=== PATIENT | male | born 1950 | race African-American/Black ===

== ENCOUNTER 2017-05-25 17:48 | Inpatient (IN) | payer MEDICARE, MEDICAID ==
[2017-05-25 18:56] LABS: Hematocrit 20.6 % (42.0-52.0); Mean Platelet Volume 17.5 fL (7.4-10.4); Red Blood Cell (RBC) Count 2.23 mill/uL (4.70-6.10)
[2017-05-25 19:15] LABS: Anisocytosis SLIGHT = 6-15 cells (100X) (0-5/hpf); Band 8 % (5-11); Neutrophil 20 % (42-75); Nucleated RBC 42 % (0); Ovalocytes SLIGHT = 2-5 cells (100X) (0-1/hpf); Polychromasia MODERATE = 3-4 cells (100X) (0-2/hpf); Reactive Lymphocytes 3 % (0-10); Schistocytes SLIGHT = 2-5 cells (100X) (0-1/hpf); Tear Drops SLIGHT = 2-5 cells (100X) (0-1/hpf)
[2017-05-25 19:16] LABS: ALT (SGPT) 29 U/L (8-55); AST (SGOT) 171 U/L (5-34); Alkaline Phosphatase 995 U/L (40-150); Anion Gap 26 mmol/L (10-20); BUN (Urea Nitrogen) 38 mg/dL (8.4-25.7); Bilirubin, Total 0.8 mg/dL (0.2-1.2); Calc. Creatinine Clearance 0 mL/min (70-130); Calcium 8.7 mg/dL (7.8-10.44); Chloride 107 mmol/L (98-107); Estimated GFR-MDRD 62; Globulin 3.3 g/dL (2.4-3.5); Protein, Total 6.7 g/dL (5.8-8.1)
[2017-05-25 19:18] LABS: Carbon Dioxide 9 mmol/L (23-31)
--- NOTE | 2017-05-25 20:22 | RAD ---
AP CHEST: Indication: Nausea, vomiting. Comparison: 05-09-17 FINDINGS: Heart size and pulmonary vascular are within normal limits. The left costophrenic angle is excluded. There is diffuse scoliosis of the visualized osseous structures, suspicious for changes of diffuse osseous metastatic disease. No calcified lymph nodes within the right infrahilar region. IMPRESSION: No acute cardiopulmonary abnormality. POS: [facility]
[2017-05-25] MEDS ORDERED: Dextrose 50% Abboject 50 ML SYRINGE ONE (20:24)
[2017-05-25] MEDS ORDERED: Sodium Bicarb 50 MEQ/50 ML Abboject 8.4% SYRINGE ONE (20:24)
[2017-05-25] MEDS ORDERED: Insulin Regular 300 UNITS/3 ML VIAL ONE (20:24)
--- NOTE | 2017-05-25 20:25 | CT ---
NONCONTRAST CT OF THE BRAIN: Indication: Weakness, confusion, abdominal pain with a history of metastatic disease. FINDINGS: The extent of the subdural hematoma overlying the left cerebral convexity is similar appearing. Ther e is worsening vasogenic edema involving the inferior aspect of the left frontal lobe and lateral as pect of the left temporal lobe. There is stable left to right midline shift of 2 mm. No acute infarc t or hydrocephalus is present. Mastoid effusions are seen again bilaterally. IMPRESSION: 1. Worsening vasogenic edema seen within the left frontal lobe. The vasogenic edema within the right frontal lobe is stable. There is worsening vasogenic edema of the left temporal lobe. 2. Stable appearance of the left subdural hemorrhage. 3. Stable left to right midline shift of 2 mm. 4. No acute infarct of hydrocephalus is present. 5. Stable bilateral mastoid effusion. POS: [facility]
[2017-05-25] MEDS ORDERED: Calcium Chloride 1 GM/10 ML Abboject SYRINGE ONE (20:32)
[2017-05-25] MEDS ORDERED: Dexamethasone 4 mg/ml Vial ONE (20:51)
[2017-05-25] MEDS ORDERED: Ondansetron HCl/PF 4 MG/2 ML Vial IVP PRN (22:09)
[2017-05-25] MEDS ORDERED: Ondansetron ODT 4 MG TAB SL PRN (22:09)
[2017-05-25] MEDS ORDERED: Acetaminophen 325 MG TAB PO PRN (22:09)
--- NOTE | 2017-05-26 00:47 | CON ---
DATE OF CONSULTATION: 05/25/2017 HISTORY OF PRESENT ILLNESS: Mr. Merino is a 66-year-old male who presents to [facility] Emergency Department with nausea and vomiting. He has a history of stage IV prostate cancer with several meta static lesions to the brain. Today, he has been having changes in mental status and has pancytopeni a. He has also been vomiting several times today. His platelet count on admission was 6, hemoglobi n was 6.8. White blood cell count was 3. A CT of the brain was completed today that showed a stabl e right frontal hemorrhagic lesion as well as a left temporoparietal subdural hematoma. There is in creased swelling around the right frontal lesion on today's CT scan compared to the CT scan on 05/10. The patient was discharged on his last admission with home medications including Zofran, lev etiracetam, and dexamethasone. Neurosurgery was consulted for the findings on CT scan. ALLERGIES: No known drug allergies. PAST MEDICAL HISTORY: Includes diabetes mellitus, prostate cancer, hypertension. PAST SURGICAL HISTORY: Not available at this time. PSYCHIATRIC HISTORY: No previous psychiatric history. SOCIAL HISTORY: The patient denies any alcohol, denies drug use. Has no smoking history. Lives at home with his spouse. REVIEW OF SYSTEMS: Patient has headache. Patient also admits to prostatic metastasis to the brain. Ten-point review of systems was completed and is otherwise negative unless stated in the above HPI . PHYSICAL EXAMINATION: HEENT: Normocephalic, atraumatic. Hearing intact. Moist mucous membranes. EYES: Pupils are equal and reactive to light. Extraocular muscles are intact. Sclerae is white, n onicteric. CARDIOVASCULAR: The patient has regular rate and rhythm, normal S1, S2 heart sounds. The patient h as no distal cyanosis or clubbing. RESPIRATORY: The patient has bilateral symmetric chest rise. Appears to be in no shortness of su th. NEUROLOGIC STATUS: The patient is alert and oriented x2. His cranial nerves II-XII are grossly int act. His speech is fluent. He answers my questions appropriately. Upper and lower extremities hav e 5/5 strength bilaterally. SKIN: There is no dermatomal sensory loss. ASSESSMENT: Mr. Merino is a 66-year-old male with metastatic prostate cancer with several metastases to the brain. He has got increased swelling around the right frontal lesion in the brain compared to his last CT scan. Mr. Merino has severe pancytopenia with a platelet count of 6 and white blood c ell count of 3. Until his platelets are greater than 125,000 and his white blood cell count is grea ter than 6, neurosurgical intervention will not be an option at this time. He has been given a bolu s of Decadron for the swelling in the right frontal region. Patient has confirmed DNR status with t he daughter in the room. Medicine Team will admit and will help correct the pancytopenia and the hy perkalemia. Neurosurgery has signed off at this time. If there are any further questions or if his platelets increase greater than 125,000 and white blood cell count greater than 6, please call Neur osurgery and we will review the possibility of a neurosurgical intervention. Thank you for this consultation and the ability to care for this patient.
[2017-05-26] MEDS ORDERED: HYDROcodone/Acetaminophen 7.5/325 mg Tablet PO PRN (02:50)
[2017-05-26] MEDS: HYDROcodone/Acetaminophen 7.5/325 mg Tablet PO PRN ×2 (02:57→10:18)
[2017-05-26] MEDS: Sodium Chloride 0.9% 1,000 ML IV SCH (03:15)
[2017-05-26 05:42] LABS: Anion Gap 17 mmol/L (10-20); BUN (Urea Nitrogen) 35 mg/dL (8.4-25.7); Calc. Creatinine Clearance 67 mL/min (70-130); Calcium 7.8 mg/dL (7.8-10.44); Carbon Dioxide 16 mmol/L (23-31); Chloride 112 mmol/L (98-107); Estimated GFR-MDRD 88
[2017-05-26 06:13] LABS: Band 10 % (5-11); Hematocrit 23.6 % (42.0-52.0); Mean Platelet Volume 17.7 fL (7.4-10.4); Neutrophil 40 % (42-75); Nucleated RBC 24 % (0); Red Blood Cell (RBC) Count 2.55 mill/uL (4.70-6.10); White Blood Cell (WBC) Count 1.5 thou/uL (4.8-10.8)
[2017-05-26] MEDS ORDERED: ADMIXTURE FEE IVPB SCH (11:00)
[2017-05-26] MEDS ORDERED: DEXAMETHASONE IVPB SCH (11:00)
[2017-05-26] MEDS ORDERED: SODIUM CHLORIDE IVPB SCH (11:00)
[2017-05-26 21:51] VITALS: BMI 24.7
--- NOTE | 2017-05-27 08:27 | HP ---
DATE OF ADMISSION: 05/25/2017 CHIEF COMPLAINT: Mental status change, confusion, nausea. HISTORY OF PRESENT ILLNESS: This is a 66-year-old black male with a history of metastatic prostate cancer which is end-stage, status post surgery, status post chemotherapy, status post radiation ther apy, who presents to the emergency department with worsening confusion, nausea and weakness. The pa cristian had a recent admission in 05/09/2017 with similar complaints. After he was admitted, the grace leavitt wanted him to be discharged home with comfort measures at home. On that admission, he was found to have multiple subdural hematomas with vasogenic areas of edema. Neurosurgery was consulted at at time and no further plans were desired by the family or needed by Neurosurgery. He went home and was comfortable until a few days prior to admission when he became more weak with increased nausea, vomiting, and confusion. In the ER, he was found to have progression of his subdural hematomas wit h increased swelling, increased left shift of his brain as well. Neurosurgery saw the patient in e Emergency Department and due to his severe pancytopenia, deemed him to be a nonsurgical candidate and he was admitted, oncology was consulted as well. PAST MEDICAL HISTORY: Metastatic prostate cancer, followed by Dr. Sheldon and Dr. Brigida Whitehead. Hypertension, diabetes, vitamin D deficiency. PAST SURGICAL HISTORY: Colonoscopy, cardiac catheterization. SOCIAL HISTORY: Lives at home with his spouse. No smoking, no alcohol, no drug use. 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 REVIEW OF SYSTEMS: As per the history of present illness. General: Denies any recent fevers, chil ls or recent illness. HEENT: Denies headache, visual or hearing changes. Cardiac: Denies chest p ain, shortness of breath. Pulmonary: Denies cough or hemoptysis. Gastrointestinal: Positive naus ea, positive vomiting, no diarrhea. Genitourinary: History of prostate cancer. Neurologic: Posit lucila weakness. No seizures or syncope. PHYSICAL EXAMINATION: VITAL SIGNS: On admission, temperature 98.4, pulse of 93, respirations 18, blood pressure 115/57, p ulse ox 99% on room air. GENERAL: He is awake and alert. He is comfortable, but lethargic. He answers questions. Speech i s clear. NECK: Supple. HEART: Regular rate and rhythm. LUNGS: Clear. ABDOMEN: Soft. EXTREMITIES: No clubbing, cyanosis or edema. No ecchymotic areas. LABORATORY DATA AND X-RAY FINDINGS: Sodium 136, potassium 5.7, chloride 107, CO2 of 9, BUN and crea tinine are 38 and 1.38, with a GFR 62, serum glucose was 263 after receiving Decadron in the ER. T of 171, ALT of 29, alkaline phosphatase of 995. White blood cell count 53902, hemoglobin and edwin tocrit are 6.8 and 20.6, platelets of 6. CT of the brain revealed worsening vasogenic edema within the left frontal lobe, stable vasogenic edema in the right frontal lobe, worsening edema in the left temporal lobe, stable left subdural hemorrhage, left to right midline shift of 2 mm. ASSESSMENT AND PLAN: 1. This is a 66-year-old gentleman with end-stage prostate carcinoma with metastasis. 2. Severe pancytopenia. 3. Subdural hemorrhage with worsening vasogenic edema. 4. Mental status change. PLAN: 1. Agree with admission with palliative care. I will recommend hospice management either inpatient or at home, depending on the family's wishes. 2. Nonsurgical candidate with subdural hematomas. 3. Further plan per Oncology. 4. Code status: The patient and family desire do not resuscitate status. 5. Analgesia.
--- NOTE | 2017-05-27 08:29 | PRG ---
DATE OF SERVICE: 05/27/2017 SUBJECTIVE: No change in patient's mental state. He is awake, alert, answers questions. He is oriented to person only. He denies pain, denies chest pain. Denies shortness of breath. Denies nausea and vomiting. He states that he is comfortable. OBJECTIVE: VITAL SIGNS: Temperature 97.9, pulse of 81, respirations 18, blood pressure 121 /62, pulse ox is 100% on room air. GENERAL: He is awake and alert, in no acute distress. NEUROLOGIC: He is comfortable, answers questions, again oriented to person, not place or time. HEENT: Mucosa is moist. NECK: Supple. HEART: Regular rate and rhythm. LUNGS: Clear. ABDOMEN: Soft, obese. EXTREMITIES: No edema. He moves all extremities. ASSESSMENT AND PLAN: 1. This is a 66-year-old gentleman with end-stage metastatic prostate carcinoma and severe pancytopenia, status post transfusions. Oncology has seen the patient and recommend hospice. Due to the patient's grave condition no further therapy options for his metastatic prostate cancer. Palliative Care has seen the patient and recommends palliative care as an outpatient with home health. Awaiting to discuss plan and to make decisions at this time. 2. Continue DNR status. 3. Multiple subdural hematomas with edema. Continue steroid therapy as requested by family. They are aware of risks and side effects including speeding demise 4. Type 2 diabetes. Higher blood sugars due to steroid therapy. Restart metformin MTDD
[2017-05-27] MEDS: Pantoprazole 40 MG VIAL IVP SCH ×2 (09:49→20:44)
[2017-05-27] MEDS: ADMIXTURE FEE IVPB SCH (09:52)
[2017-05-27] MEDS: DEXAMETHASONE IVPB SCH (09:52)
[2017-05-27] MEDS: SODIUM CHLORIDE IVPB SCH (09:52)
[2017-05-27] MEDS ORDERED: Ondansetron ODT 8 MG TAB PO PRN (10:15)
--- NOTE | 2017-05-27 12:13 | CON ---
DATE OF CONSULTATION: 05/26/2017 REASON FOR CONSULTATION: Metastatic prostate cancer. HISTORY OF PRESENT ILLNESS: Mr. Merino is a 66-year-old gentleman well known to our clinic with meta static prostate cancer originally diagnosed in 2012. He is still on multiple treatment regimens, mo st recently he is on Lupron every 3 months with Zometa for bone metastasis. Approximately 3 weeks a go, he presented to the emergency room with altered mental status. The CT scan showed a subdural he matoma. He was pancytopenic with a platelet count of 9000. He also had diffuse lytic lesions. He was transfused 1 unit of platelets. Palliative care and hospice was discussed with the family as th e patient has been declining over the past several months with pancytopenia likely secondary to infi ltration of the bone marrow with cancer. The family declined and took patient home. He returned ye sterday with nausea and vomiting. He also had continued altered mental status. CT scan was done, w hich showed worsening vasogenic edema of the left frontal lobe; however, the left subdural hematoma was stable. He was pancytopenic with a white count of 3. His hemoglobin was 6.8, platelet count wa s 6000. He was transfused 2 units of platelets and 1 unit of packed RBCs. On discussion with the w dayo, she states that he has been \\\\"okay.\\\\" He is essentially bedridden and has to be assisted wit h feeding. She denies no duncan bleeding in his blood or urine. PAST MEDICAL HISTORY: 1. Metastatic prostate cancer. 2. Diabetes mellitus 2. 3. Hypertension. 4. Subdural hematoma. PAST SURGICAL HISTORY: 1. Colonoscopy. 2. Cardiac catheterization. ALLERGIES: No known drug allergies. HOME MEDICATIONS: 1. Clonidine 0.1 mg b.i.d. 2. Hydralazine 50 mg b.i.d. 3. Lantus b.i.d. 4. Losartan 10 mg daily. 5. Metformin 1000 mg b.i.d. 6. [place] 10/325 p.r.n. 7. Tramadol 50 p.r.n. 8. Celebrex 200 mg daily. 9. Zofran p.r.n. FAMILY HISTORY: Noncontributory. SOCIAL HISTORY: , lives with his spouse. No alcohol, tobacco or illicit drug use. REVIEW OF SYSTEMS: Unable to obtain secondary to somnolence. PHYSICAL EXAMINATION: VITAL SIGNS: Temperature is 98.2, pulse is 88, respiratory rate 18, BP is 113/59. He is 96% on kaylen m air. GENERAL: Chronically ill-appearing male in no acute distress. HEENT: Normocephalic, atraumatic. Pupils are equal and reactive to light. NECK: Supple. CARDIOVASCULAR: Regular rate and rhythm. LUNGS: Clear. ABDOMEN: Soft, nontender. Bowel sounds are positive. EXTREMITIES: No clubbing, cyanosis or edema. SKIN: No rash. HEMATOLOGICAL: He has scattered petechiae on his arms and legs. NEUROLOGICAL: He is somnolent, but awakes and answers and is oriented to person and place. PERTINENT LABORATORY AND X-RAYS: Current WBCs are 1.5, hemoglobin 7.8, hematocrit 23.6, platelet co unt 4000. He has got 40% neutrophils, 10% bands, 44% lymphocytes. Sodium 139, potassium 5.5, chlor cleve 112, CO2 of 16, BUN is 35, creatinine 1.02, calcium is 7.8, total bilirubin is 0.8, AST is 171, ALT 29, alkaline phosphatase is 995, serum total protein 6.7, albumin 3.5, globulin 3.3. Radiology per HPI. ASSESSMENT: 1. Metastatic prostate cancer, end stage. 2. Stable left subdural hematoma. 3. Pancytopenia, secondary to #1. DISCUSSION: The patient has been transfused. There is no evidence of bleeding. The family has dec lined hospice in the past. We discussed again that there is no further treatment for the patient. They have agreed to consider palliative care and home health. We will consult the palliative care t eam otherwise supportive care. Thank you for the consult.
[2017-05-27] MEDS: Sodium Chloride 0.9% 1,000 ML IV SCH (16:12)
[2017-05-27] MEDS: levETIRAcetam 500 MG TAB PO SCH (20:43)
--- NOTE | 2017-05-27 23:36 | ADD-PRG ---
ADDENDUM DATE OF SERVICE: 05/27/2017 I reviewed with the patient and the family as far as the need for a wheelchair. The patient is not able to safely use cane, crutches or walker due to his weakness and his increased falls risk. He re quires a wheelchair to be able to perform any kind of mobility, activities of daily living. Family members and caregivers are capable to assist the patient with the use of a wheelchair. ASSESSMENT AND PLAN: This is a 66-year-old gentleman with end-stage metastatic prostate cancer and severe pancytopenia, status post transfusions of platelets and packed red blood cells. Oncology rec [facility]. The patient's condition is not improving. Arrangements are to be made for either home health with palliative care or home health with hospice depending on the family's decision. Th e patient is aware of the risk. Rx was written for a wheelchair per the family to develop the care for him at home with home health.
[2017-05-28 07:19] VITALS: BP 118/56; TEMP 99.2
--- NOTE | 2017-05-28 08:18 | DIS ---
DATE OF ADMISSION: 05/25/2017 DATE OF DISCHARGE: 05/28/2017 ADMISSION DIAGNOSES: Mental status change, weakness, nausea. DISCHARGE DIAGNOSES: 1. Metastatic prostate carcinoma with several metastases to the brain. 2. Severe pancytopenia. 3. Multiple subdural hematomas. CONSULTATIONS: Neurosurgery and Oncology. PROCEDURES: CT of the brain, chest x-ray, and IV steroid therapy. HOSPITAL COURSE: This is a 66-year-old gentleman with a history of end-stage metastatic prostate ca rcinoma who had a recent admission earlier this month for similar symptoms. He was found to have fernandez bdural hematomas. The family decided to bring him home with comfort measures and he continued to wo rsen with his mental state and increased nausea and vomiting. In the emergency department, he was f ound to have progression of subdural hematomas with midline shift and increased edema around these l esions. He was started on IV fluids. He is started on IV steroid therapy. I had to try to help wi th the swelling around his brain. He did have mild to moderate improvement of his symptoms. The fa stephie still wanted to bring him home. They declined hospice, but agreed to palliative care with home health and that was arranged prior to his discharge home. We had multiple discussions about the gr ave condition of the patient and the likelihood of this being the beginning of his demise and they u nderstood. He was seen by Domenica Abreu for Oncology who agreed with hospice therapy and comfort nelly sures. He had severe pancytopenia, but no overt bleeding except for the CAT scan with subdural edwin melany. He was discharged home with home health and palliative care. DISCHARGE PHYSICAL EXAMINATION: VITAL SIGNS: Temperature 99.2, pulse is 79, respirations 18, blood pressure 118/56, pulse ox 98% on room air. GENERAL: He is lethargic, but awake, and answers questions. He is oriented to person only. HEART: Regular rate and rhythm. LUNGS: Clear. ABDOMEN: Soft. SKIN: With some petechial hemorrhages on his arm, but again no overt bleeding. EXTREMITIES: With no edema. LABORATORY DATA: Reviewed. DISCHARGE MEDICATIONS: Include hydrocodone p.r.n. pain, vitamin D3 daily, Keppra 500 mg b.i.d., Glu cophage 1000 mg b.i.d., Zofran p.r.n., and dexamethasone 4 mg daily. FOLLOWUP INSTRUCTIONS: Patient to follow up as an outpatient.
[2017-05-28] MEDS ORDERED: Docusate 100 MG CAP PO SCH (09:00)
[2017-05-28 10:00] LABS: Hematocrit 19.6 % (42.0-52.0); Mean Platelet Volume 11.5 fL (7.4-10.4); Red Blood Cell (RBC) Count 2.12 mill/uL (4.70-6.10); White Blood Cell (WBC) Count 1.4 thou/uL (4.8-10.8)
[2017-05-28] MEDS: SODIUM CHLORIDE IVPB SCH (10:02)
[2017-05-28] MEDS: Pantoprazole 40 MG VIAL IVP SCH (10:02)
[2017-05-28] MEDS: DEXAMETHASONE IVPB SCH (10:02)
[2017-05-28] MEDS: ADMIXTURE FEE IVPB SCH (10:02)
[2017-05-28] MEDS: levETIRAcetam 500 MG TAB PO SCH (10:03)
[2017-05-28 10:12] LABS: Anion Gap 10 mmol/L (10-20); BUN (Urea Nitrogen) 13 mg/dL (8.4-25.7); Calc. Creatinine Clearance 101 mL/min (70-130); Calcium 7.7 mg/dL (7.8-10.44); Carbon Dioxide 19 mmol/L (23-31); Chloride 113 mmol/L (98-107); Estimated GFR-MDRD Greater than 90
[2017-05-28 10:26] LABS: Band 10 % (5-11); Hypochromia MODERATE=16-30 cells (100X) (0-5/hpf); Neutrophil 20 % (42-75); Nucleated RBC 24 % (0); Polychromasia MODERATE = 3-4 cells (100X) (0-2/hpf)
[2017-05-28] MEDS ORDERED: Bisacodyl 5 MG TAB PO SCH (11:00)
[2017-05-28] MEDS ORDERED: Bisacodyl 10 MG SUPP PR SCH ×2 (14:45→15:00)
[2017-05-28] MEDS ORDERED: Fleet Enema 133 ML BOT FS PRN (14:51)
--- NOTE | 2017-05-30 14:55 | EKG ---
Test Reason : AMS Blood Pressure : / mmHG Vent. Rate : 099 BPM Atrial Rate : 098 BPM P-R Int : 000 ms QRS Dur : 066 ms QT Int : 364 ms P-R-T Axes : 000 014 080 degrees QTc Int : 467 ms Accelerated Junctional rhythm ST abnormality, possible digitalis effect Abnormal ECG Confirmed by DIVYA ABRAMS D.O. ([id number]), videotape editor AMANDO RAMIREZ ([id number]) on 05/30/2017 2:55:06 PM Referred By: Confirmed By:DIVYA ABRAMS D.O.
== END 2017-05-28 16:08 | disposition hospice, home (50) | DRG 54 ==
LOC: ERS 17:48 → ONC 20:45
PROVIDERS: ADMIT Family Medicine; ATTEND Family Medicine
PROC: 30233N1 Transfusion of Nonautologous Red Blood Cells into Peripheral Vein, Percutaneous Approach (ICD-10-PCS; principal; 2017-05-25)
PROC: 30233R1 Transfusion of Nonautologous Platelets into Peripheral Vein, Percutaneous Approach (ICD-10-PCS; 2017-05-26)
DX: C79.31 Secondary malignant neoplasm of brain (principal); I62.00 Nontraumatic subdural hemorrhage, unspecified; G93.6 Cerebral edema; D61.818 Other pancytopenia; C61 Malignant neoplasm of prostate; I10 Essential (primary) hypertension; E11.9 Type 2 diabetes mellitus without complications; Z92.21 Personal history of antineoplastic chemotherapy; Z51.5 Encounter for palliative care; R29.6 Repeated falls; Z66 Do not resuscitate
CPT/HCPCS: 36415; 36416; 36430; 51701; 70450; 71010; 80048; 80053; 85025; 86850; 86900; 86901; 93005; 94760; 96361; 96365; 96375; A4216; C9113; J1100; J1815; J7050; P9016; P9035

== ENCOUNTER 2017-05-31 07:08 | Inpatient (IN) | payer MEDICARE, MEDICAID ==
[2017-05-31] MEDS ORDERED: cefTRIAXone\\ROCEPHIN 2 GM VIAL ONE (08:03)
--- NOTE | 2017-05-31 08:03 | RAD ---
RADIOGRAPH CHEST 1 VIEW: HISTORY: 66-year-old male with acute chest pain. FINDINGS: There are no air space densities, pulmonary edema, pneumothorax, or cardiomegaly. The lateral costo phrenic angles are sharp. There is severe diffuse sclerosis of all visualized skeletal structures. IMPRESSION: 1. No acute cardiopulmonary findings. 2. 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 yajaira mckinney POS: [facility]
[2017-05-31 08:06] LABS: Hematocrit 23.7 % (42.0-52.0); Mean Platelet Volume 14.8 fL (7.4-10.4); White Blood Cell (WBC) Count 1.8 thou/uL (4.8-10.8)
[2017-05-31 08:14] LABS: Lactic Acid - Sepsis 2.9 mmol/L (0.5-2.2)
[2017-05-31 08:17] LABS: ALT (SGPT) 19 U/L (8-55); AST (SGOT) 25 U/L (5-34); Alkaline Phosphatase 579 U/L (40-150); Anion Gap 18 mmol/L (10-20); BUN (Urea Nitrogen) 16 mg/dL (8.4-25.7); Bilirubin, Total 1.1 mg/dL (0.2-1.2); Calc. Creatinine Clearance 0 mL/min (70-130); Calcium 8.3 mg/dL (7.8-10.44); Carbon Dioxide 14 mmol/L (23-31); Chloride 110 mmol/L (98-107); Estimated GFR-MDRD Greater than 90; Globulin 3.4 g/dL (2.4-3.5); Protein, Total 6.5 g/dL (5.8-8.1)
[2017-05-31 08:41] LABS: Bilirubin Moderate (Negative); Blood, Urine Small (Negative); Glucose, Urine (Dipstick) Negative (Negative); Ketone, Urine 40 mg/dL (Negative); Nitrite Negative (Negative); Protein, Urine (Dipstick) 30 mg/dL (Neg-Trace)
[2017-05-31 08:44] LABS: Bacteria/HPF None Seen HPF (None Seen); RBC/HPF 0-3 HPF (0-3); WBC/HPF 0-3 HPF (0-3)
[2017-05-31 08:56] LABS: Hyaline Casts/LPF 0-3 HYALINE CAST LPF (0-3 Hyaline); Renal Epithelial 0-3 HPF (0-3)
[2017-05-31 09:44] LABS: Band 22 % (5-11); Myelocyte 2 % (0-0); Neutrophil 28 % (42-75); Nucleated RBC 20 % (0); Ovalocytes SLIGHT = 2-5 cells (100X) (0-1/hpf); Polychromasia SLIGHT = 2-3 cells (100X) (0-2/hpf); Schistocytes SLIGHT = 2-5 cells (100X) (0-1/hpf); Tear Drops SLIGHT = 2-5 cells (100X) (0-1/hpf)
[2017-05-31 11:59] VITALS: BMI 24.3
[2017-05-31] MEDS ORDERED: Ondansetron HCl/PF 4 MG/2 ML Vial IVP PRN (12:27)
[2017-05-31] MEDS ORDERED: Acetaminophen 325 MG TAB PO PRN (12:27)
[2017-05-31] MEDS ORDERED: Ondansetron ODT 4 MG TAB PO PRN (12:27)
[2017-05-31] MEDS: Sodium Chloride 0.9% 1,000 ML IV SCH ×2 (12:56→20:51)
[2017-05-31] MEDS ORDERED: Cefepime 2 GM in Sodium Chloride 0.9% 100 ML IVPB SCH (13:00)
--- NOTE | 2017-05-31 16:26 | HP ---
DATE OF SERVICE: 05/31/2017 CHIEF COMPLAINT: Weakness and fever. HISTORY OF PRESENT ILLNESS: This is a 66-year-old -Welsh male with a history of metastati c prostate carcinoma with recent admission for mental status change when he was found to have progre ssively worsening tumor metastasis to his brain with midline shift and worsening subdural hemorrhage s and edema who was discharged home with palliative care and returned to the emergency department to day with increased weakness and fever. The patient had been doing well with his yesterday and they walked in a wheelchair. Today he felt more weak, the found him to have a fever and high h eart rate. Palliative care was contacted. They came to evaluate the patient and they decided to se nd him to the emergency department for further evaluation. In the ER, he was found to have a temper ature up to 103.5 rectally. He was tachycardic up to 124 and hypoxic with a pulse ox of 85% on room air. He was given IV vancomycin and ceftriaxone and morphine with some improvement of the symptoms . On oxygen, his oxygen level remained stable. He is now comfortable in his bed. He was seen by Omari Sheldon on the floor. I had a long discussion with the family and the patient about the grave c ondition of the patient and rapid worsening of his symptomatology. They decided to make him DNR wit h hospice evaluation and symptomatic control only during this hospitalization. They still have a go al of taking him home with hospice. PAST MEDICAL HISTORY: 1. Again, metastatic prostate cancer followed by Dr. Sheldon, Dr. Allred and Dr. Whitehead, nails d status post chemotherapy, status post radiation therapy. 2. Hypertension. 3. Diabetes. 4. Vitamin deficiency. PAST SURGICAL HISTORY: Colonoscopy, cardiac catheterization. MEDICATIONS: Include metoprolol 25 mg daily, Celebrex p.r.n., metformin 1000 mg b.i.d., Zofran p.r. n., and vitamin D3 1000 units daily, Keppra 500 mg b.i.d., dexamethasone 4 mg daily, Colace p.r.n., [place] 10/325 p.r.n. ALLERGIES: No known drug allergies. SOCIAL HISTORY: He is , lives at home with his . No smoking, no alcohol. He is retired . REVIEW OF SYSTEMS: As per the history of present illness. Recent admission for a weakness and ment al status change. Positive recent fever at home. No congestion. HEENT: No visual or hearing juarez ges. Cardiac: Had an episode of heart racing prior to presenting to the emergency department. No chest pain. Pulmonary: Denies cough or hemoptysis. Gastrointestinal: Denies nausea, vomiting, ab dominal pain, melena, hematochezia. Genitourinary: History of prostate cancer. He denies hematuria or dysuria. Neurologic: Positiv e for weakness, positive for mental status change, no seizures recently. PHYSICAL EXAMINATION: VITAL SIGNS: Temperature now 98.2, pulse of 90, respirations 20, blood pressure 127/71. Pulse ox i s 100% on 2 liters. GENERAL: He is comfortable, no acute distress. He answers questions appropriately. Mucosa is mois t. NECK: Supple. HEART: Regular rate and rhythm. LUNGS: Clear. ABDOMEN: Soft. EXTREMITIES: With no edema. Continues to have scattered petechial hemorrhages on his arms and trun k. NEUROLOGIC: He has overall weakness. LABORATORY DATA: White blood cell count 1800, with a 28% neutrophils, 22% bands, 4% lymphocytes, he moglobin and hematocrit 7.6 and 23.7, platelets of 18,000, sodium 137, potassium 4.9, chloride 110, CO2 of 14, BUN and creatinine 16 and 0.79, glucose of 175, lactic acid is elevated at 2.9, alkaline phosphatase of 579, albumin of 3.1. Urinalysis positive protein, positive ketones, positive blood, moderate bilirubin. Chest x-ray showed no acute cardiopulmonary findings, diffuse severe osteoblast ic mets from prostate cancer. ASSESSMENT: This is a 66-year-old gentleman with end-stage prostate carcinoma with metastasis throu ghout his body, severe pancytopenia, status post subdural hemorrhage with worsening vasogenic edema now with neutropenic fever and left shift on his white blood cell count as well. PLAN: 1. Appreciate Dr. Sheldon evaluating and discussing the case with the patient and family. I agree with DNR and hospice measures with symptomatic care. 2. We will continue DNR status. 3. Continue analgesia with Dilaudid p.r.n. pain and agitation. 4. Await hospice evaluation.
[2017-06-01] MEDS ORDERED: Haloperidol Lactate 5 MG/ML VIAL SLOW IVP PRN ×2 (10:47→13:53)
[2017-06-01] MEDS ORDERED: Lorazepam 2 MG/ML VIAL SLOW IVP PRN ×2 (10:50→13:53)
--- NOTE | 2017-06-01 12:24 | PRG ---
DATE OF SERVICE: 06/01/2017 HISTORY OF PRESENT ILLNESS: Mr. Merino is a 66-year-old -[place] male who unfortunately is a t the terminal stages of metastatic prostate cancer. He was hospitalized one day ago, hospitalized for fever and elevated heart rate while under palliative care. He was noted when evaluated to be ta chycardic and hypoxic. He was given some empiric antibiotics as well as some morphine for pain cont rol. He has been placed into the DO NOT RESUSCITATE status. In discussion with the family, to incl ude the patient's , hospice is desired. PHYSICAL EXAMINATION: VITAL SIGNS: Blood pressure 127/74, pulse oximetry 100%, respiratory rate 20, pulse 94, temperature 97. GENERAL: Lying supine, sedate, and arousable. 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 When as ked what his favorite Bible verse is, he with great reliability was able to quote The Bible verse of Jeovany 3:16. He otherwise keeps his eyes closed and is noncommunicative. At this time, he is not co mbative nor appearing agitated (although there is report that he has been so recently). LUNGS: Breathing nonlabored. SKIN: With normal texture and appearance. LABORATORY DATA: Blood cultures 2/2 positive for Staph aureus. ASSESSMENT: 1. Febrile neutropenia with Staphylococcus aureus bacteremia. This in the context of metastatic en d-stage prostate cancer. I discussed with the patient's and family how the apparent infectious problem would likely be a sooner cause of rather than later. Antibiotic therapy was discusse d, its potential benefits, and it was decided not to use those in order to prolong his . 2. Metastatic prostate cancer. PLAN: 1. Hospitalization. 2. Comfort care. 3. Hospice consultation. Time spent at the bedside approximately 30-40 minutes.
[2017-06-02] MEDS ORDERED: Scopolamine 1.5 mg/72 hour Patch TOP SCH (05:30)
[2017-06-02 07:19] VITALS: BP 124/65; TEMP 97.6
--- NOTE | 2017-06-02 08:42 | PRG ---
DATE OF SERVICE: 06/02/2017 SUBJECTIVE: The patient awakens easily. He responds, but is not speaking. Apparently, he had a co mfortable weekend with no further incidents. Hospice has been consulted. Palliative care has been caring for him as well. Family is deciding on whether to proceed with hospice care, inpatient or ou tpatient. Plan per Dr. Sheldon was evaluated. He recommends no further treatment and comfort geeta ures only. He has been answering their questions throughout the hospitalization. PHYSICAL EXAMINATION: VITAL SIGNS: Temperature 97.6, pulse 102, respirations 20, blood pressure 124/65, pulse ox 100% on O2. GENERAL: He is awake and alert. He is lethargic and falls asleep easily, but comfortable. HEENT: Mucosa is dry. NECK: Supple. HEART: Tachycardic. LUNGS: Clear. EXTREMITIES: With no edema, but still with stable petechial hemorrhages in his arm. LABORATORY DATA: Blood cultures are growing Staph aureus, positive for MRSA. ASSESSMENT AND PLAN: 1. 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 The patient and family have understood the grave seriousness of his condition and his eminent . They agree with hospice care probably as an inpatient. 2. Febrile neutropenia with Staph aureus bacteremia. In his condition, the family understands that the treatment of this could potentially speed his demise and probably would not improve his outcome due to potential side effects of that treatment. It was discussed with Dr. Sheldon as well as vishal phipps and there is agreement not to proceed with treatment of the infection and to continue with hospi ce management at this time. PLAN: We will continue comfort care Hospice evaluation and pain management.
[2017-06-02] MEDS ORDERED: Acetaminophen 650 MG Suppository PR PRN (08:51)
== END 2017-06-02 13:02 | disposition hospice, inpatient (51) | DRG 808 ==
LOC: ERS 07:08 → ONC 11:24
PROVIDERS: ADMIT Family Medicine; ATTEND Family Medicine
DX: D70.9 Neutropenia, unspecified (principal); G93.6 Cerebral edema; I62.00 Nontraumatic subdural hemorrhage, unspecified; R78.81 Bacteremia; C79.31 Secondary malignant neoplasm of brain; C79.51 Secondary malignant neoplasm of bone; B95.62 Methicillin resistant Staphylococcus aureus infection as the cause of diseases classified elsewhere; D61.818 Other pancytopenia; C61 Malignant neoplasm of prostate; Z66 Do not resuscitate; Z51.5 Encounter for palliative care; Z92.21 Personal history of antineoplastic chemotherapy; Z92.3 Personal history of irradiation; I10 Essential (primary) hypertension; E11.9 Type 2 diabetes mellitus without complications; E55.9 Vitamin D deficiency, unspecified; R50.81 Fever presenting with conditions classified elsewhere
CPT/HCPCS: 36415; 71010; 80053; 81003; 81015; 83605; 85025; 87040; 87077; 87086; 87149; 87186; 93005; 96361; 96365; 96367; 96375; A4216; J0692; J0696; J1170; J2270; J3370; J7050

== ENCOUNTER 2017-06-02 13:06 | Inpatient (IN) | payer OTHER ==
[2017-06-02] MEDS ORDERED: Bisacodyl 10 MG SUPP PR PRN (13:22)
[2017-06-02] MEDS ORDERED: Acetaminophen 650 MG Suppository PR PRN (13:23)
[2017-06-02] MEDS ORDERED: Scopolamine 1.5 mg/72 hour Patch TOP PRN (13:24)
[2017-06-02] MEDS ORDERED: Morphine Sulfate 10 mg/0.5 ml Oral Syringe SL PRN (13:24)
[2017-06-02] MEDS ORDERED: chlorproMAZINE HCl 50 MG/2 ML AMP IM PRN (13:25)
[2017-06-02] MEDS ORDERED: Lorazepam 1 MG TAB PO PRN (13:25)
[2017-06-02] MEDS ORDERED: Senokot 8.6 MG TAB PO PRN (13:26)
[2017-06-02 15:08] VITALS: BMI 24.3
[2017-06-03 07:36] VITALS: BP 133/63; TEMP 98.5
== END 2017-06-03 15:22 | disposition hospice, inpatient (51) | DRG 951 ==
LOC: ONC 13:06
PROVIDERS: ADMIT Family Medicine; ATTEND Family Medicine
DX: Z51.5 Encounter for palliative care (principal); C79.31 Secondary malignant neoplasm of brain; C61 Malignant neoplasm of prostate; Z66 Do not resuscitate; I10 Essential (primary) hypertension; E11.9 Type 2 diabetes mellitus without complications; Z79.84 Long term (current) use of oral hypoglycemic drugs; E56.9 Vitamin deficiency, unspecified
CPT/HCPCS: J1170